=== PATIENT | male | born 1950 | race Caucasian/White ===

== ENCOUNTER → 2021-06-01 | Outpatient (CLI) | payer OTHER, MEDICARE ==
--- NOTE | 2021-06-01 12:32 | RAD ---
Renal ultrasound 06/01/2021 INDICATION:: Acute renal failure Discussion: Ultrasound evaluation of the kidneys performed. Static images were submitted to PACS. Visualized aort a and IVC are unremarkable. The right kidney is somewhat atrophic measuring 8.8 x 5.2 x 4.5 cm. There is diffuse renal cortical t hinning. There is a small cyst in the inferior right kidney measuring 1.1 cm in diameter. No other fo susie renal lesions are identified on the right. The bladder is essentially completely empty limiting e valuation. Prostate appears somewhat prominent, but is difficult to evaluate without fluid in the shubham dder. Left kidney measures 9.2 x 4.2 x 5.5 cm. Left renal cortex is also thin. There is a 1 cm cyst in the inferior pole of the left kidney. No other focal renal lesion is identified. No evidence of hydronephrosis or obstructive uropathy is identified involving either kidney. No evide nce of nephrolithiasis is seen. Impression: 1.Atrophic changes involving the bilateral kidneys including cortical thinning. 2. Small bilateral renal cysts measuring 1.1 cm on the right 1.0 cm on the left. Electronically signed by: Jevon Mccrary MD (06/01/2021 12:30 PM) [id number]
== END ==
LOC: US 07:57
PROVIDERS: ATTEND Internal Medicine Nephrology
DX: N28.1 Cyst of kidney, acquired (principal); N26.1 Atrophy of kidney (terminal); N17.9 Acute kidney failure, unspecified
CPT/HCPCS: 76770

== ENCOUNTER → 2021-09-21 | Outpatient (CLI) | payer MEDICARE ==
[2021-09-21 12:33] LABS: ALBUMIN 3.8 g/dL (3.4-5.0); CALCIUM 8.9 mg/dL (8.5-10.1); CREATININE 1.5 mg/dL (0.7-1.3); GFR 46.1; PHOSPHORUS 3.3 mg/dL (2.6-4.7); POTASSIUM 4.3 mmol/L (3.5-5.1)
[2021-09-22 18:07] LABS: CALCIUM PTH 9.8 mg/dL (8.6-10.2); CREATININE PTH 1.42 mg/dL (0.76-1.27); PTH INTACT 39 pg/mL (15-65)
== END ==
LOC: LAB 11:28
PROVIDERS: ATTEND Internal Medicine Nephrology
DX: N17.9 Acute kidney failure, unspecified (principal); E55.9 Vitamin D deficiency, unspecified; N40.0 Benign prostatic hyperplasia without lower urinary tract symptoms; I12.9 Hypertensive chronic kidney disease with stage 1 through stage 4 chronic kidney disease, or unspecified chronic kidney disease; N18.9 Chronic kidney disease, unspecified
CPT/HCPCS: 36415; 80069; 83970

== ENCOUNTER → 2022-01-06 | Outpatient (CLI) | payer MEDICARE ==
[2022-01-06 15:27] LABS: ALBUMIN 3.6 g/dL (3.4-5.0); CALCIUM 8.5 mg/dL (8.5-10.1); CREATININE 1.3 mg/dL (0.7-1.3); GFR 54.4; PHOSPHORUS 3.6 mg/dL (2.6-4.7); POTASSIUM 4.6 mmol/L (3.5-5.1)
[2022-01-08 12:07] LABS: CREATININE PTH 1.25 mg/dL (0.76-1.27); PTH INTACT 51 pg/mL (15-65)
== END ==
LOC: LAB 12:48
PROVIDERS: ATTEND Internal Medicine Nephrology
DX: I12.9 Hypertensive chronic kidney disease with stage 1 through stage 4 chronic kidney disease, or unspecified chronic kidney disease (principal); N18.31 Chronic kidney disease, stage 3a; N17.9 Acute kidney failure, unspecified; E55.9 Vitamin D deficiency, unspecified; N40.0 Benign prostatic hyperplasia without lower urinary tract symptoms; Z68.26 Body mass index [BMI] 26.0-26.9, adult
CPT/HCPCS: 36415; 80069; 83970